=== PATIENT | female | born 1990 | race Two or more races ===

== ENCOUNTER 2019-04-02 02:19 | Emergency (ER) | payer MEDICAID, OTHER ==
[~2019-04-02] VITALS: Ht 152.4 cm; Wt 65.0 kg
--- NOTE | 2019-04-02 02:46 | NUR ---
pt resting on gurney with eyes closed, responds to pain, equal chest rise/fall oberved, monitors in place, will monitor
--- NOTE | 2019-04-02 03:36 | NUR ---
PT RESTING ON GURNEY WITH EYES CLOSED, NADN, RESPIRATIONS EVEN AND UNLABORED, CALL LIGHT WITHIN REACH. AWAITING LAB RESULTS, WILL CONT TO MONITOR
[2019-04-02 03:51] LABS: ANION GAP 10 mmol/L (5-15); CALCIUM 8.6 mg/dL (8.5-10.1); CHLORIDE 105 mmol/L (98-107); CREATININE 0.67 mg/dL (0.55-1.02)
--- NOTE | 2019-04-02 04:33 | NUR ---
PT RESTING ON GURNEY WITH EYES CLOSED, NAD, EQUAL CHEST RISE/FALL OBSERVED, CALL LIGHT WITHIN REACH. WILL MONITOR
--- NOTE | 2019-04-02 05:34 | NUR ---
pt resting on gurney with eyes closed, responds to pain by moaning and turning head and quickly falls back to sleep, equal chest rise/fall oberved, monitors in place, will monitor
[2019-04-02 06:42] VITALS: BP 100/60
--- NOTE | 2019-04-02 06:42 | NUR ---
PT RESTING WITH EYES CLOSED PT MOANS WITH PAINFUL STIMULI, DOES NOT RESPOND TO VERBAL RESPONSE, NAD, RESPIRATIONS EVEN AND UNLABORED, MONITORS REMAIN IN PLACE, VSS, CALL LIGHT WITHIN REACH WILL CONTINUE TO MONITOR
--- NOTE | 2019-04-02 06:57 | NUR ---
report given to almaz patel
--- NOTE | 2019-04-02 07:00 | NUR ---
REPORT RECEIVED FROM KYARA CALDWELL.
--- NOTE | 2019-04-02 07:58 | NUR ---
PT SLEEPING IN GURNEY. RESPS EVEN AND UNLABORED.
--- NOTE | 2019-04-02 08:23 | NUR ---
Patient given discharge instructions and they have confirmed that they understand the instructions. Patient ambulatory with steady gait.
== END 2019-04-02 08:24 ==
LOC: ED 08:18
DX: F10.121 Alcohol abuse with intoxication delirium (principal); G92 Toxic encephalopathy; Y90.8 Blood alcohol level of 240 mg/100 ml or more
CPT/HCPCS: 36415; 80048; 80307; 99283; 99291